=== PATIENT | male | born 1935 | race Caucasian/White ===

== ENCOUNTER 2019-07-31 17:40 | Inpatient (IN) | payer MEDICARE, BC ==
[~2019-07-31] VITALS: Ht 182.9 cm; Wt 86.2 kg
[~2019-07-31 17:40] MED LIST: ASCO-339 MT; ASPI-1497 PO; ATOR20TA65 MT; IBUP-2437 MT; LATA7.5D OP; LEVO75TA7 MT; LISI10TA5 MT; MULT-1203 PO; PROP10DR4 EACHEYE; TAMS-11 PO; UBID100C12 PO; VITA400T9 PO; [UNRECOGNIZED DRUG - CODE] PO
[2019-07-31] MEDS ORDERED: SODIUM CHLORIDE 0.9% 1,000 ML IV ONE (18:30)
[2019-07-31 19:14] LABS: HEMATOCRIT. 39.9 % (42.0-52.0); HEMOGLOBIN. 13.7 g/dL (14.0-18.0); MEAN CORPUSCULAR HEMOGLOBIN 33.8 pg (28.0-32.0); MEAN CORPUSCULAR VOLUME 98.3 fL (80.0-94.0); MEAN PLATELET VOLUME 9.4 fl (7.4-10.4); PLATELET 163 x1000/uL (130-400); RED BLOOD CELL COUNT 4.06 mill/uL (4.7-6.1); RED CELL DISTRIBUTION WIDTH 13.6 % (11.6-14.6)
[2019-07-31 19:18] LABS: CHLORIDE 100 mEq/L (98-107)
[2019-07-31 19:29] LABS: CREATINE KINASE 62 IU/L (39-308)
[2019-07-31 20:23] LABS: PLATELET ESTIMATE NORMAL
[2019-07-31 21:47] LABS: CLARITY URINE CLEAR (CLEAR); COLOR URINE YELLOW (YELLOW); KETONES URINE TRACE (NEGATIVE); LEUKOCYTE ESTERASE URINE NEGATIVE (NEGATIVE); NITRITE URINE NEGATIVE (NEGATIVE); OCCULT BLOOD URINE NEGATIVE (NEGATIVE); PH URINE 5.5 (4.5-8.0); PROTEIN URINE NEGATIVE (NEGATIVE); SPECIFIC GRAVITY URINE 1.017 (1.005-1.030); UROBILINOGEN URINE 0.2 E.U./dL (0.2-1.0)
[2019-07-31] MEDS ORDERED: ACETAMINOPHEN 325MG TABLET PO PRN (23:15)
[2019-07-31] MEDS ORDERED: ONDANSETRON HCL 4MG/2ML INJ IV PRN (23:15)
[2019-07-31] MEDS ORDERED: DIPHENHYDRAMINE 50MG/ML VIAL IV PRN (23:15)
[2019-07-31] MEDS ORDERED: MAGNESIUM/ALUMINUM HYDROXIDE/SIMETHICONE 30ML UDC PO PRN (23:15)
[2019-08-01] VITALS: BP 135/83
[2019-08-01] LABS: T4 FREE 1.72 ng/dL (0.76-1.46)
[2019-08-01] MEDS ORDERED: METO5AMP3 IV (00:40)
[2019-08-01] MEDS ORDERED: METO-396 PO (00:40)
[2019-08-01] MEDS ORDERED: LOPHC2 MT (00:40)
[2019-08-01] MEDS ORDERED: MVI, ADULT NO.1 10 ML, FOLIC ACID 1 MG, THIAMINE HCL 100 MG in SODIUM CHLORIDE 0.9% 1,0... IV SCH ×4 (02:00)
[2019-08-01 04:00] VITALS: BP 118/79
[2019-08-01 06:40] LABS: HEMOGLOBIN. 11.9 g/dL (14.0-18.0); MEAN CORPUSCULAR HEMOGLOBIN 34.1 pg (28.0-32.0); MEAN CORPUSCULAR VOLUME 97.7 fL (80.0-94.0); MEAN PLATELET VOLUME 9.7 fl (7.4-10.4); PLATELET 130 x1000/uL (130-400); RED BLOOD CELL COUNT 3.48 mill/uL (4.7-6.1); RED CELL DISTRIBUTION WIDTH 13.2 % (11.6-14.6)
[2019-08-01] MEDS: LEVOTHYROXINE SODIUM 75MCG TABLET PO SCH (07:22)
[2019-08-01 07:36] LABS: CHLORIDE 103 mEq/L (98-107)
[2019-08-01 07:43] LABS: PHOSPHORUS 2.6 mg/dL (2.5-4.9)
[2019-08-01 08:00] VITALS: BP 131/63
[2019-08-01] MEDS: LISINOPRIL 10MG TABLET PO SCH ×2 (09:12→21:25)
[2019-08-01] MEDS: ASPIRIN 81MG EC TABLET PO SCH (09:12)
[2019-08-01] MEDS: TAMSULOSIN HCL 0.4MG SR CAPSULE PO SCH (09:12)
[2019-08-01] MEDS ORDERED: POTASSIUM CHLORIDE 20MEQ TABLET SR PO NR (10:00)
[2019-08-01 10:57] LABS: PLATELET ESTIMATE NORMAL
[2019-08-01 12:00] VITALS: BP 133/61
[2019-08-01 16:00] VITALS: BP 132/69
[2019-08-01 20:00] VITALS: BP 129/67
[2019-08-01] MEDS ORDERED: ATORVASTATIN CALCIUM 20MG TABLET PO SCH (21:00)
[2019-08-01] MEDS ORDERED: LATANOPROST 0.005% OPHTH DROPS 2.5ML RIGHTEYE SCH (21:00)
[2019-08-02] VITALS: BP 150/77
[2019-08-02 04:00] VITALS: BP 150/77
[2019-08-02] MEDS: LEVOTHYROXINE SODIUM 75MCG TABLET PO SCH (06:44)
[2019-08-02 07:15] LABS: VITAMIN B12 SERUM 1702 pg/mL (211-911)
[2019-08-02] MEDS: ASPIRIN 81MG EC TABLET PO SCH (09:22)
[2019-08-02] MEDS: LISINOPRIL 10MG TABLET PO SCH (09:22)
[2019-08-02] MEDS: TAMSULOSIN HCL 0.4MG SR CAPSULE PO SCH (09:23)
[2019-08-02] MEDS ORDERED: MAGNESIUM 1 G PREMIX 100 ML IV NR (15:00)
[2019-08-02] MEDS ORDERED: MAGNESIUM OXIDE 400MG TABLET PO SCH (17:00)
[2019-08-02] MEDS ORDERED: MAGNESIUM OXIDE 400MG TABLET PO NR (17:30)
[2019-08-02 18:22] VITALS: BP 123/73
== END 2019-08-02 18:53 | disposition home or self-care (01) | DRG 74 ==
LOC: ER 17:40 → 6EST 22:12 → EDBEDREQ 22:20 → EDBEDREQTM 22:20 → EDBEDREQSVC 22:20 → ENRESERV 22:38
PROVIDERS: ADMIT Internal Medicine; ATTEND Internal Medicine
DX: G90.8 Other disorders of autonomic nervous system (principal); I42.8 Other cardiomyopathies; E03.9 Hypothyroidism, unspecified; E11.9 Type 2 diabetes mellitus without complications; I10 Essential (primary) hypertension; I25.10 Atherosclerotic heart disease of native coronary artery without angina pectoris; G30.9 Alzheimer's disease, unspecified; F02.80 Dementia in other diseases classified elsewhere, unspecified severity, without behavioral disturbance, psychotic disturbance, mood disturbance, and anxiety; E78.00 Pure hypercholesterolemia, unspecified; E83.42 Hypomagnesemia; E87.6 Hypokalemia; I35.2 Nonrheumatic aortic (valve) stenosis with insufficiency; E86.0 Dehydration; Z82.49 Family history of ischemic heart disease and other diseases of the circulatory system; Z68.25 Body mass index [BMI] 25.0-25.9, adult; Z79.899 Other long term (current) drug therapy
CPT/HCPCS: 36415; 71045; 80048; 80051; 80053; 81003; 82550; 82607; 83735; 84100; 84439; 84443; 84484; 85025; 93005; 97162; 99285; J3411; J3475; J3490; J7030